=== PATIENT | female | born 1940 | race Caucasian/White ===

== ENCOUNTER 2017-01-12 08:04 | Inpatient (IN) | payer MEDICARE ==
[~2017-01-12] VITALS: Ht 160 cm; Wt 76.7 kg
--- NOTE | ~2017-01-12 | OP ---
Record Of Operation [facility] [address] [place]. [address] NAME: SHE BAPTISTE : 42 STATUS : ADM IN PAT#: [id number] AGE: 76 ADM/REG DATE : 01/12/17 MR#: [id number] REPORT SERV DATE: 02/13/17 DICTATED BY: TERRIE FUNES DATE: 02/13/17 REPORT STATUS : Draft TRANSCRIBED BY: RICHARD DATE: 02/13/17 DATE OF PROCEDURE: 02/13/2017 PREPROCEDURE DIAGNOSIS: Left knee effusion. POSTPROCEDURE DIAGNOSIS: Left knee effusion. PROCEDURE: Aspiration under sterile conditions of her left knee. COMPLICATIONS: None. SPECIMENS: Approximately 50 mL of yellow fluid, clear, sent to lab for Gram stain, aerobic, anaerobic, cell counts, AFB, and fungal. CONDITION UPON FINISHING PROCEDURE: Stable, feeling better. Dressed with Band-Aid. INDICATION FOR PROCEDURE: Briefly, this is a pleasant 76-year-old female with effusion concern for infection versus gout/pseudogout and inability to ambulate with rehab. We therefore gave her the risks and benefits of aspiration including, but not limited to, further pain, further infection, possible return of effusion, and hemarthrosis. She verbalized understanding of these risks and wished to proceed to procedure. A verbal time-out was made in the room air and everybody conferred on side and site. I then prepped her knee with ChloraPrep utilizing sterile technique with sterile gloves and sterile instruments. I utilized an 18-gauge spinal needle and a 60 mL syringe to aspirate 50 mL of clear yellow fluid from an anterior lateral portal. With this accomplished, I extracted the needle and dressed it with a Band-Aid, and the fluid was sent to micro as above. She tolerated the procedure well. We will continue to follow her labs again. Thank you for allowing me to share in this pleasant lady's care. POOJA/RICHARD Terrie Funes M.D. / [id number] CC: Pollo Roman M.D.
--- NOTE | ~2017-01-12 | CN ---
Consultation Report [facility] [address] [place]. [address] NAME: SHE BAPTISTE : 42 STATUS : ADM IN PAT#: [id number] AGE: 76 ADM/REG DATE : 01/12/17 MR#: [id number] REPORT SERV DATE: 02/13/17 DICTATED BY: TERRIE FUNES DATE: 02/13/17 REPORT STATUS : Draft TRANSCRIBED BY: MODL DATE: 02/13/17 CONSULTATION DATE OF CONSULTATION: 02/13/2017 CHIEF COMPLAINT: Left knee pain. HISTORY OF PRESENT ILLNESS: This pleasant 76-year-old female who is noted to have AML and has been on chemotherapy, has noted to have exquisite left knee pain. Radiographs confirmed chondrocalcinosis of the menisci suggestive of gout. She had responded slightly to colchicine, however, she is unable to bear weight with a large effusion about her left knee that is preventing rehab at this point. I have spoken with her oncologist, Dr. Cobian, whom we have conferred on evaluation and treatment plan. PAST MEDICAL HISTORY: Significant for melanoma, which was removed in 2014. PAST SURGICAL HISTORY: Includes arthroscopic surgery on her contralateral right knee. FAMILY HISTORY: Heart disease on one side and longevity on the other. SOCIAL HISTORY: She is , has a supportive spouse in the room. No alcohol, tobacco, or other illicits. CURRENT MEDICATIONS: See chart. Chart has been reviewed. REVIEW OF SYSTEMS: No headache, chest pain, nausea, vomiting, or shortness of breath concurrently, however, these symptoms have been present off and on with her chemotherapy. PHYSICAL EXAMINATION: GENERAL: On physical exam, I see a lady who looks stated age. A and O x3. Pleasant, cooperative with exam, supine in her bed at 467 approximately at 11 a.m. on 02/13/2017. HEENT: Pupils equally round and reactive to light and accommodation. Extraocular muscles intact. CHEST: Clear to auscultation bilaterally. HEART: Regular rate and rhythm. ABDOMEN: Soft, nontender, nondistended. Bowel sounds are present. EXTREMITIES: Bilateral upper extremities and right lower extremity showed good active and passive range of motion. Good distal pulses. No peripheral edema. Good sensation about the left lower extremity. Motion is limited about her knee. Her knee is fixed in approximately 45 degrees lying over to the lateral side in her bed. She has difficulty moving this knee and is exquisitely tender to palpation and has a very large effusion with a ballotable patella. There is no overall erythema. There is no drainage. I do not appreciate swelling and of the skin. All of her compartments are soft. Consultation Report [facility] [address] [address] NAME: SHE BAPTISTE : 42 STATUS : ADM IN PAT#: [id number] AGE: 76 ADM/REG DATE : 01/12/17 MR#: [id number] REPORT SERV DATE: 02/13/17 DICTATED BY: TERRIE FUNES DATE: 02/13/17 REPORT STATUS : Draft TRANSCRIBED BY: RICHARD DATE: 02/13/17 IMAGING: Radiographs reveal chondrocalcinosis of the menisci as well as tricompartmental osteoarthritis with bone spurs, osteophyte formation in all three compartments, as well as joint space loss overall. They do appear to be nonweightbearing films, but still significant osteoarthritis. ASSESSMENT: A 76-year-old with a large knee effusion, gout/pseudogout versus infection. I agree with Dr. Cobian that risks do not outweigh the benefits of an aspiration at this point, and we should rule out infection, and at the very least provide some relief with aspiration effusion. I have discussed this at length with the patient. She verbalized understanding and wishes to proceed. POOJA/RICHARD Terrie Funes M.D. / [id number] CC: Pollo Roman M.D.
--- NOTE | ~2017-01-12 | DS ---
Discharge Summary [place] [id number] [facility] [place] [place]. [address] NAME: SHE ECHEVERRIA : 42 STATUS : ADM IN PAT#: [id number] AGE: 76 ADM/REG DATE : 01/12/17 MR#: [id number] REPORT SERV DATE: 02/17/17 DICTATED BY: GILMA CATES III DATE: 02/17/17 REPORT STATUS : Draft TRANSCRIBED BY: MODL DATE: 02/17/17 ADMISSION DATE: 01/12/2017 DISCHARGE DATE: 02/17/2017 DISCHARGE DIGNOSES: 1. 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 2. Febrile neutropenia. 3. Left knee pseudogout flare. DISPOSITION: To rehab. DIET: Regular. ACTIVITY: As tolerated and per physical therapy. FOLLOWUP APPOINTMENT: She will need to follow up on 02/20/[address] Prado. DISCHARGE MEDICATIONS: 1. Acyclovir 400 mg twice a day. 2. Zofran 4 mg p.o. q.8 hours p.r.n. 3. Aspirin 81 mg p.o. daily. 4. Prednisone taper from 40 mg to 5 mg over five days. 5. Oxycodone 5 mg p.o. q.4 hours p.r.n. HOSPITAL COURSE: Ms. 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 She decided to undergo induction therapy and was admitted on 01/12/2017 to start treatment. She received idarubicin with cytarabine, which she tolerated very well, with the exception of the expected pancytopenia. She did develop neutropenic fever, which was culture negative and responded promptly to cefepime. Her blood counts remained low. She was treated with midostaurin 50 mg p.o. b.i.d. on days 8 through 21 secondary to her having an FLT3-positive mutational status. Her blood counts did recover on around day #30. Her discharge was delayed secondary to a left knee effusion, thought secondary to pseudogout flare, but did respond to prednisone and was improving by the day of discharge. She will be discharged to rehab and will follow up with Dr. Prado later this week. BMA/YUSUFL Gilma Cates III, M.D. / [id number] CC: Discharge Summary [address] [address] NAME: SHE ECHEVERRIA : 42 STATUS : ADM IN PAT#: [id number] AGE: 76 ADM/REG DATE : 01/12/17 MR#: [id number] REPORT SERV DATE: 02/17/17 DICTATED BY: GILMA CATES III DATE: 02/17/17 REPORT STATUS : Draft TRANSCRIBED BY: MODL DATE: 02/17/17 Pollo Roman M.D.
[~2017-01-12 08:04] MED LIST: ASAB PO; DACOGEN50 MG IV; HYDREA PO; MULTIVIT/MIN PO; VITAMIN D OTC PO; Z300 PO
[2017-01-12 09:17] LABS: HEMOGLOBIN 7.1 g/dL (12.0-16.0); INTERNATIONAL NORMAL RATI 1.4 UNITS (-); MEAN CORPUS HGB CONC 31.6 g/dL (32.0-36.0); MEAN CORPUSCULAR HEMOGLOB 28.6 pg (26.0-34.0); MEAN CORPUSCULAR VOLUME 90.7 fL (80-100); MEAN PLATELET VOLUME 10.7 fL (9.2-13.0); NUCLEATED RED BLOOD CELLS 0.6 /100WBC (0-0); PROTIME (NOT ORD) 17.1 SEC (12.0-14.5); RBC DISTRIBUTION WIDTH 17.8 % (12.0-16.0); RED CELL COUNT 2.48 10/6/uL (4.0-5.6)
[2017-01-12 09:18] LABS: PARTIAL THROMBO TIME 36.3 SEC (22.5-37.2)
[2017-01-12 09:24] LABS: A/G RATIO 0.8 (0.7-1.9); ALBUMIN 3.3 G/DL (3.5-5.0); ALKALINE PHOSPHATASE 86 U/L (45-117); BUN (BLOOD UREA NITROGEN) 15 MG/DL (6-23); CALCIUM, SERUM 9.1 MG/DL (8.5-10.4); CHLORIDE, SERUM 107 MMOL/L (96-112); CREATININE 1.09 MG/DL (0.55-1.02); GFR AFRICAN AMERICAN 58 ML/MIN (>=60); GFR NON AFRICAN AMERICAN 50 ML/MIN (>=60); GLUCOSE, SERUM 99 MG/DL (60-99); POTASSIUM, SERUM 4.3 MMOL/L (3.5-5.3); SGOT(AST) 23 U/L (5-40); SGPT(ALT) 19 U/L (5-65); SODIUM, SERUM 138 MMOL/L (135-148); TOTAL BILIRUBIN 0.2 MG/DL (0-1.2); TOTAL PROTEIN 7.3 G/DL (6.0-8.5)
[2017-01-12 09:25] LABS: CO2 (CARBON DIOXIDE) 22 MMOL/L (24-34)
[2017-01-12 09:36] LABS: HEMATOCRIT 22.5 % (36.0-48.0); PLATELET COUNT 746 10/3/uL (150-400); WHITE BLOOD CELLS 13.7 10/3/uL (4.5-10.5)
[2017-01-12 09:37] LABS: MANUAL DIFF YES %
[2017-01-12 09:44] LABS: ANISOCYTOSIS 1+ (5-10/OIF) (0-5/OIF); BAND NEUTROPHILS 4 %; BASOPHILS 2 %; BASOPHILS ABSOLUTE (CALC) 0.27 10/3/uL (0.0-0.16); EOSINOPHILS 4 %; EOSINOPHILS ABSOLUTE (CALC) 0.55 10/3/uL (0.0-0.53); LYMPHOCYTES 82 %; LYMPHOCYTES ABSOLUTE (CALC) 11.23 10/3/uL (0.67-4.30); MONOCYTES 2 %; MONOCYTES ABSOLUTE (CALC) 0.27 10/3/uL (0.21-1.20); NEUTROPHILS ABSOLUTE (CALC) 1.37 10/3/uL (2.02-8.40); SEGMENTED NEUTROPHIL (0) 6 %; TOTAL NUCLEATED CELLS 100
[2017-01-12] MEDS ORDERED: Z300 PO (11:45)
[2017-01-12] MEDS ORDERED: HYDREA PO (11:45)
[2017-01-12] MEDS ORDERED: TYLENOL OTC PO (11:46)
[2017-01-12] MEDS ORDERED: HALF81 PO (11:46)
[2017-01-13 05:21] LABS: BUN (BLOOD UREA NITROGEN) 14 MG/DL (6-23); CALCIUM, SERUM 8.5 MG/DL (8.5-10.4); CHLORIDE, SERUM 110 MMOL/L (96-112); CO2 (CARBON DIOXIDE) 22 MMOL/L (24-34); CREATININE 0.84 MG/DL (0.55-1.02); GFR AFRICAN AMERICAN 79 ML/MIN (>=60); GFR NON AFRICAN AMERICAN 68 ML/MIN (>=60); GLUCOSE, SERUM 118 MG/DL (60-99); POTASSIUM, SERUM 4.5 MMOL/L (3.5-5.3); SODIUM, SERUM 141 MMOL/L (135-148)
[2017-01-13 05:42] LABS: HEMOGLOBIN 7.5 g/dL (12.0-16.0); MANUAL DIFF YES %; MEAN CORPUS HGB CONC 31.3 g/dL (32.0-36.0); MEAN CORPUSCULAR HEMOGLOB 28.3 pg (26.0-34.0); MEAN CORPUSCULAR VOLUME 90.6 fL (80-100); NUCLEATED RED BLOOD CELLS 0.8 /100WBC (0-0); PLATELET COUNT 710 10/3/uL (150-400); RBC DISTRIBUTION WIDTH 17.2 % (12.0-16.0); RED CELL COUNT 2.65 10/6/uL (4.0-5.6); WHITE BLOOD CELLS 9.3 10/3/uL (4.5-10.5)
[2017-01-13 06:39] LABS: ATYPICAL LYMPH FEW (3-5%) (0-5%)
[2017-01-13 06:44] LABS: BAND NEUTROPHILS 3 %; BLASTS 27 % (0); EOSINOPHILS 1 %; EOSINOPHILS ABSOLUTE (CALC) 0.09 10/3/uL (0.0-0.53); IMMATURE GRANS ABSOLUTE (CALC) 0.09 10/3/uL (0.0-0.11); LYMPHOCYTES 39 %; LYMPHOCYTES ABSOLUTE (CALC) 3.81 10/3/uL (0.67-4.30); METAMYELOCYTES 1 %; MONOCYTES 4 %; MONOCYTES ABSOLUTE (CALC) 0.37 10/3/uL (0.21-1.20); SEGMENTED NEUTROPHIL (0) 25 %; TOTAL NUCLEATED CELLS 100
[2017-01-13 06:47] LABS: ANISOCYTOSIS 1+ (5-10/OIF) (0-5/OIF); GIANT PLATELET OCC
[2017-01-13 06:48] LABS: ATYPICAL LYMPH FEW (3-5%) (0-5%)
[2017-01-14 06:44] LABS: HEMATOCRIT 22.8 % (36.0-48.0); HEMOGLOBIN 7.3 g/dL (12.0-16.0); MEAN CORPUSCULAR HEMOGLOB 28.7 pg (26.0-34.0); MEAN CORPUSCULAR VOLUME 89.8 fL (80-100); MEAN PLATELET VOLUME 10.9 fL (9.2-13.0); RBC DISTRIBUTION WIDTH 17.6 % (12.0-16.0); RED CELL COUNT 2.54 10/6/uL (4.0-5.6)
[2017-01-14 06:45] LABS: MANUAL DIFF YES %; PLATELET COUNT 755 10/3/uL (150-400); WHITE BLOOD CELLS 4.4 10/3/uL (4.5-10.5)
[2017-01-14 06:50] LABS: CALCIUM, SERUM 8.5 MG/DL (8.5-10.4); CHLORIDE, SERUM 112 MMOL/L (96-112); CO2 (CARBON DIOXIDE) 23 MMOL/L (24-34); CREATININE 0.82 MG/DL (0.55-1.02); GFR AFRICAN AMERICAN 81 ML/MIN (>=60); GFR NON AFRICAN AMERICAN 70 ML/MIN (>=60); GLUCOSE, SERUM 119 MG/DL (60-99); POTASSIUM, SERUM 4.3 MMOL/L (3.5-5.3); SODIUM, SERUM 143 MMOL/L (135-148)
[2017-01-14 06:51] LABS: BUN (BLOOD UREA NITROGEN) 18 MG/DL (6-23)
[2017-01-14 07:33] LABS: BAND NEUTROPHILS 3 %; BASOPHILS 3 %; BASOPHILS ABSOLUTE (CALC) 0.13 10/3/uL (0.0-0.16); BLASTS 42 % (0); EOSINOPHILS 3 %; EOSINOPHILS ABSOLUTE (CALC) 0.13 10/3/uL (0.0-0.53); IMMATURE GRANS ABSOLUTE (CALC) 0.09 10/3/uL (0.0-0.11); LYMPHOCYTES 26 %; LYMPHOCYTES ABSOLUTE (CALC) 1.14 10/3/uL (0.67-4.30); MONOCYTES 5 %; MONOCYTES ABSOLUTE (CALC) 0.22 10/3/uL (0.21-1.20); NEUTROPHILS ABSOLUTE (CALC) 0.84 10/3/uL (2.02-8.40); PROMYELOCYTES 2 % (0); SEGMENTED NEUTROPHIL (0) 16 %; TOTAL NUCLEATED CELLS 100
[2017-01-14 07:37] LABS: ANISOCYTOSIS 1+ (5-10/OIF) (0-5/OIF); GIANT PLATELET FEW
[2017-01-15 04:30] LABS: BUN (BLOOD UREA NITROGEN) 19 MG/DL (6-23); CALCIUM, SERUM 8.1 MG/DL (8.5-10.4); CHLORIDE, SERUM 111 MMOL/L (96-112); CO2 (CARBON DIOXIDE) 23 MMOL/L (24-34); CREATININE 0.74 MG/DL (0.55-1.02); GFR AFRICAN AMERICAN 92 ML/MIN (>=60); GFR NON AFRICAN AMERICAN 79 ML/MIN (>=60); GLUCOSE, SERUM 118 MG/DL (60-99); POTASSIUM, SERUM 4.4 MMOL/L (3.5-5.3); SODIUM, SERUM 141 MMOL/L (135-148)
[2017-01-15 04:33] LABS: HEMOGLOBIN 8.1 g/dL (12.0-16.0); MEAN CORPUS HGB CONC 31.9 g/dL (32.0-36.0); MEAN CORPUSCULAR HEMOGLOB 27.6 pg (26.0-34.0); MEAN PLATELET VOLUME 10.1 fL (9.2-13.0); RBC DISTRIBUTION WIDTH 19.2 % (12.0-16.0); RED CELL COUNT 2.93 10/6/uL (4.0-5.6)
[2017-01-15 04:36] LABS: HEMATOCRIT 25.4 % (36.0-48.0); MEAN CORPUSCULAR VOLUME 86.7 fL (80-100); PLATELET COUNT 714 10/3/uL (150-400); WHITE BLOOD CELLS 2.2 10/3/uL (4.5-10.5)
[2017-01-15 04:37] LABS: MANUAL DIFF YES %
[2017-01-15 07:11] LABS: ANISOCYTOSIS 1+ (5-10/OIF) (0-5/OIF); BAND NEUTROPHILS 4 %; BASOPHILS 2 %; BASOPHILS ABSOLUTE (CALC) 0.04 10/3/uL (0.0-0.16); BLASTS 29 % (0); EOSINOPHILS 2 %; EOSINOPHILS ABSOLUTE (CALC) 0.04 10/3/uL (0.0-0.53); LYMPHOCYTES 31 %; LYMPHOCYTES ABSOLUTE (CALC) 0.68 10/3/uL (0.67-4.30); MONOCYTES 1 %; MONOCYTES ABSOLUTE (CALC) 0.02 10/3/uL (0.21-1.20); NEUTROPHILS ABSOLUTE (CALC) 0.77 10/3/uL (2.02-8.40); SEGMENTED NEUTROPHIL (0) 31 %; TOTAL NUCLEATED CELLS 100
[2017-01-15 07:12] LABS: POLYCHROMASIA 1+ (2-5/OIF) (0-1/OIF)
[2017-01-16 04:46] LABS: HEMATOCRIT 26.6 % (36.0-48.0); HEMOGLOBIN 8.5 g/dL (12.0-16.0); MEAN CORPUSCULAR HEMOGLOB 28.3 pg (26.0-34.0); MEAN CORPUSCULAR VOLUME 88.7 fL (80-100); MEAN PLATELET VOLUME 10.1 fL (9.2-13.0)
[2017-01-16 04:49] LABS: BUN (BLOOD UREA NITROGEN) 21 MG/DL (6-23); CALCIUM, SERUM 8.3 MG/DL (8.5-10.4); CHLORIDE, SERUM 109 MMOL/L (96-112); CO2 (CARBON DIOXIDE) 24 MMOL/L (24-34); CREATININE 0.79 MG/DL (0.55-1.02); GFR AFRICAN AMERICAN 85 ML/MIN (>=60); GFR NON AFRICAN AMERICAN 73 ML/MIN (>=60); POTASSIUM, SERUM 4.1 MMOL/L (3.5-5.3); SODIUM, SERUM 141 MMOL/L (135-148)
[2017-01-16 04:50] LABS: MANUAL DIFF YES %; PLATELET COUNT 906 10/3/uL (150-400)
[2017-01-16 04:51] LABS: GLUCOSE, SERUM 87 MG/DL (60-99)
[2017-01-16 05:39] LABS: BAND NEUTROPHILS 1 %; BASOPHILS 3 %; BASOPHILS ABSOLUTE (CALC) 0.06 10/3/uL (0.0-0.16); BLASTS 23 % (0); LYMPHOCYTES 55 %; NEUTROPHILS ABSOLUTE (CALC) 0.38 10/3/uL (2.02-8.40); SEGMENTED NEUTROPHIL (0) 18 %; TOTAL NUCLEATED CELLS 100
[2017-01-16 05:40] LABS: ANISOCYTOSIS 1+ (5-10/OIF) (0-5/OIF)
[2017-01-16 05:41] LABS: TOXIC GRANULATION SLT
[2017-01-16 05:42] LABS: POLYCHROMASIA 1+ (2-5/OIF) (0-1/OIF)
[2017-01-17 05:40] LABS: HEMATOCRIT 26.3 % (36.0-48.0); HEMOGLOBIN 8.6 g/dL (12.0-16.0); MEAN CORPUS HGB CONC 32.7 g/dL (32.0-36.0); MEAN CORPUSCULAR HEMOGLOB 28.7 pg (26.0-34.0); MEAN CORPUSCULAR VOLUME 87.7 fL (80-100); MEAN PLATELET VOLUME 9.7 fL (9.2-13.0); PLATELET COUNT 691 10/3/uL (150-400); RBC DISTRIBUTION WIDTH 18.1 % (12.0-16.0)
[2017-01-17 05:45] LABS: WHITE BLOOD CELLS 0.8 10/3/uL (4.5-10.5)
[2017-01-17 05:46] LABS: MANUAL DIFF YES %
[2017-01-17 05:53] LABS: BUN (BLOOD UREA NITROGEN) 14 MG/DL (6-23); CALCIUM, SERUM 8.6 MG/DL (8.5-10.4); CHLORIDE, SERUM 106 MMOL/L (96-112); CO2 (CARBON DIOXIDE) 26 MMOL/L (24-34); CREATININE 0.59 MG/DL (0.55-1.02); GFR AFRICAN AMERICAN 104 ML/MIN (>=60); GFR NON AFRICAN AMERICAN 90 ML/MIN (>=60); GLUCOSE, SERUM 94 MG/DL (60-99); POTASSIUM, SERUM 3.8 MMOL/L (3.5-5.3); SODIUM, SERUM 138 MMOL/L (135-148)
[2017-01-17 06:51] LABS: BLASTS 25 % (0); EOSINOPHILS 6 %; EOSINOPHILS ABSOLUTE (CALC) 0.05 10/3/uL (0.0-0.53); LYMPHOCYTES 60 %; LYMPHOCYTES ABSOLUTE (CALC) 0.48 10/3/uL (0.67-4.30); MONOCYTES 2 %; MONOCYTES ABSOLUTE (CALC) 0.02 10/3/uL (0.21-1.20); NEUTROPHILS ABSOLUTE (CALC) 0.06 10/3/uL (2.02-8.40); SEGMENTED NEUTROPHIL (0) 8 %; TOTAL NUCLEATED CELLS 53
[2017-01-17 06:52] LABS: ANISOCYTOSIS 1+ (5-10/OIF) (0-5/OIF); PLATELET ESTIMATE INC (ADEQUATE)
[2017-01-17 06:53] LABS: GIANT PLATELET OCC
[2017-01-17 19:53] LABS: ASCORBIC ACID (UR NOT ORDER) NEG (NEG); BILIRUBIN, URINE NEGATIVE (NEG); KETONE, URINE NEGATIVE (NEG); LEUKOCYTE ESTERASE(NOT OR TRACE (NEG); WBC (NOT ORDERED) (RFLEX) 12 (0-5)
[2017-01-18 04:40] LABS: HEMATOCRIT 24.7 % (36.0-48.0); MEAN CORPUS HGB CONC 32.4 g/dL (32.0-36.0); MEAN CORPUSCULAR HEMOGLOB 28.2 pg (26.0-34.0); MEAN PLATELET VOLUME 9.3 fL (9.2-13.0); RED CELL COUNT 2.84 10/6/uL (4.0-5.6)
[2017-01-18 04:43] LABS: MANUAL DIFF YES %; PLATELET COUNT 474 10/3/uL (150-400); WHITE BLOOD CELLS 0.5 10/3/uL (4.5-10.5)
[2017-01-18 04:56] LABS: BUN (BLOOD UREA NITROGEN) 12 MG/DL (6-23); CALCIUM, SERUM 8.7 MG/DL (8.5-10.4); CHLORIDE, SERUM 105 MMOL/L (96-112); CO2 (CARBON DIOXIDE) 26 MMOL/L (24-34); CREATININE 0.66 MG/DL (0.55-1.02); GFR AFRICAN AMERICAN 100 ML/MIN (>=60); GFR NON AFRICAN AMERICAN 86 ML/MIN (>=60); GLUCOSE, SERUM 100 MG/DL (60-99); POTASSIUM, SERUM 4.2 MMOL/L (3.5-5.3); SGOT(AST) 13 U/L (5-40); SGPT(ALT) 25 U/L (5-65); SODIUM, SERUM 137 MMOL/L (135-148); TOTAL BILIRUBIN 0.4 MG/DL (0-1.2)
[2017-01-18 04:58] LABS: A/G RATIO 0.8 (0.7-1.9); ALBUMIN 2.5 G/DL (3.5-5.0); ALKALINE PHOSPHATASE 58 U/L (45-117); GLOBULIN 3.3 G/DL (2.5-4.1); TOTAL PROTEIN 5.8 G/DL (6.0-8.5)
[2017-01-18 05:08] LABS: ANISOCYTOSIS 1+ (5-10/OIF) (0-5/OIF); BASOPHILS 4 %; BASOPHILS ABSOLUTE (CALC) 0.02 10/3/uL (0.0-0.16); BLASTS 16 % (0); GIANT PLATELET OCC; LYMPHOCYTES 64 %; LYMPHOCYTES ABSOLUTE (CALC) 0.32 10/3/uL (0.67-4.30); MONOCYTES 4 %; MONOCYTES ABSOLUTE (CALC) 0.02 10/3/uL (0.21-1.20); NEUTROPHILS ABSOLUTE (CALC) 0.06 10/3/uL (2.02-8.40); PLATELET ESTIMATE SLT INC (ADEQUATE); POLYCHROMASIA 1+ (2-5/OIF) (0-1/OIF); SEGMENTED NEUTROPHIL (0) 12 %; TOTAL NUCLEATED CELLS 25
[2017-01-19 05:06] LABS: HEMATOCRIT 22.8 % (36.0-48.0); HEMOGLOBIN 7.4 g/dL (12.0-16.0); MEAN CORPUS HGB CONC 32.5 g/dL (32.0-36.0); MEAN CORPUSCULAR HEMOGLOB 28.6 pg (26.0-34.0); MEAN PLATELET VOLUME 9.4 fL (9.2-13.0); RBC DISTRIBUTION WIDTH 17.7 % (12.0-16.0); RED CELL COUNT 2.59 10/6/uL (4.0-5.6)
[2017-01-19 05:07] LABS: MANUAL DIFF YES %; PLATELET COUNT 316 10/3/uL (150-400); WHITE BLOOD CELLS 0.4 10/3/uL (4.5-10.5)
[2017-01-19 05:15] LABS: BUN (BLOOD UREA NITROGEN) 15 MG/DL (6-23); CALCIUM, SERUM 8.6 MG/DL (8.5-10.4); CHLORIDE, SERUM 108 MMOL/L (96-112); CO2 (CARBON DIOXIDE) 27 MMOL/L (24-34); CREATININE 0.63 MG/DL (0.55-1.02); GFR AFRICAN AMERICAN 102 ML/MIN (>=60); GFR NON AFRICAN AMERICAN 88 ML/MIN (>=60); GLUCOSE, SERUM 98 MG/DL (60-99); POTASSIUM, SERUM 4.4 MMOL/L (3.5-5.3); SODIUM, SERUM 142 MMOL/L (135-148)
[2017-01-19 06:18] LABS: BLASTS 12 % (0); EOSINOPHILS 4 %; EOSINOPHILS ABSOLUTE (CALC) 0.02 10/3/uL (0.0-0.53); LYMPHOCYTES 72 %; LYMPHOCYTES ABSOLUTE (CALC) 0.29 10/3/uL (0.67-4.30); MONOCYTES 4 %; MONOCYTES ABSOLUTE (CALC) 0.02 10/3/uL (0.21-1.20); NEUTROPHILS ABSOLUTE (CALC) 0.03 10/3/uL (2.02-8.40); NUCLEATED RED BLOOD CELLS 0 /100WBC (0); SEGMENTED NEUTROPHIL (0) 8 %; TOTAL NUCLEATED CELLS 25
[2017-01-19 06:19] LABS: ANISOCYTOSIS 1+ (5-10/OIF) (0-5/OIF); MICROCYTES 1+ (5-10/OIF) (0-5/OIF); PLATELET ESTIMATE ADQ (ADEQUATE)
[2017-01-20 04:17] LABS: HEMOGLOBIN 8.5 g/dL (12.0-16.0); MEAN CORPUS HGB CONC 33.3 g/dL (32.0-36.0); MEAN CORPUSCULAR HEMOGLOB 29.3 pg (26.0-34.0); MEAN CORPUSCULAR VOLUME 87.9 fL (80-100); MEAN PLATELET VOLUME 9.5 fL (9.2-13.0); RBC DISTRIBUTION WIDTH 17.2 % (12.0-16.0)
[2017-01-20 04:20] LABS: HEMATOCRIT 25.5 % (36.0-48.0); MANUAL DIFF YES %; PLATELET COUNT 181 10/3/uL (150-400); WHITE BLOOD CELLS 0.3 10/3/uL (4.5-10.5)
[2017-01-20 04:30] LABS: BUN (BLOOD UREA NITROGEN) 15 MG/DL (6-23); CALCIUM, SERUM 8.4 MG/DL (8.5-10.4); CHLORIDE, SERUM 107 MMOL/L (96-112); CO2 (CARBON DIOXIDE) 26 MMOL/L (24-34); CREATININE 0.69 MG/DL (0.55-1.02); GFR AFRICAN AMERICAN 99 ML/MIN (>=60); GFR NON AFRICAN AMERICAN 85 ML/MIN (>=60); GLUCOSE, SERUM 99 MG/DL (60-99); POTASSIUM, SERUM 4.1 MMOL/L (3.5-5.3); SODIUM, SERUM 141 MMOL/L (135-148)
[2017-01-20 05:34] LABS: BASOPHILS 9 %; BASOPHILS ABSOLUTE (CALC) 0.03 10/3/uL (0.0-0.16); EOSINOPHILS 4 %; EOSINOPHILS ABSOLUTE (CALC) 0.01 10/3/uL (0.0-0.53); LYMPHOCYTES 83 %; LYMPHOCYTES ABSOLUTE (CALC) 0.25 10/3/uL (0.67-4.30); NEUTROPHILS ABSOLUTE (CALC) 0.01 10/3/uL (2.02-8.40); SEGMENTED NEUTROPHIL (0) 4 %; TOTAL NUCLEATED CELLS 23
[2017-01-20 05:35] LABS: ANISOCYTOSIS 1+ (5-10/OIF) (0-5/OIF); GIANT PLATELET RARE; OVALOCYTES 1+ (3-10/OIF) (0-2/OIF); PLATELET ESTIMATE ADQ (ADEQUATE)
[2017-01-21 04:38] LABS: HEMATOCRIT 24.8 % (36.0-48.0); MEAN CORPUS HGB CONC 32.3 g/dL (32.0-36.0); MEAN CORPUSCULAR HEMOGLOB 28.4 pg (26.0-34.0); MEAN CORPUSCULAR VOLUME 87.9 fL (80-100); MEAN PLATELET VOLUME 10.1 fL (9.2-13.0); RBC DISTRIBUTION WIDTH 17.1 % (12.0-16.0); RED CELL COUNT 2.82 10/6/uL (4.0-5.6)
[2017-01-21 04:39] LABS: MANUAL DIFF YES %; PLATELET COUNT 103 10/3/uL (150-400); WHITE BLOOD CELLS 0.3 10/3/uL (4.5-10.5)
[2017-01-21 04:57] LABS: BUN (BLOOD UREA NITROGEN) 16 MG/DL (6-23); CALCIUM, SERUM 8.4 MG/DL (8.5-10.4); CHLORIDE, SERUM 107 MMOL/L (96-112); CO2 (CARBON DIOXIDE) 26 MMOL/L (24-34); CREATININE 0.62 MG/DL (0.55-1.02); GFR AFRICAN AMERICAN 102 ML/MIN (>=60); GFR NON AFRICAN AMERICAN 88 ML/MIN (>=60); GLUCOSE, SERUM 117 MG/DL (60-99); POTASSIUM, SERUM 3.6 MMOL/L (3.5-5.3); SODIUM, SERUM 139 MMOL/L (135-148)
[2017-01-21 05:25] LABS: BASOPHILS 5 %; BASOPHILS ABSOLUTE (CALC) 0.02 10/3/uL (0.0-0.16); LYMPHOCYTES 95 %; LYMPHOCYTES ABSOLUTE (CALC) 0.29 10/3/uL (0.67-4.30); TOTAL NUCLEATED CELLS 100
[2017-01-21 05:26] LABS: ANISOCYTOSIS 1+ (5-10/OIF) (0-5/OIF); GIANT PLATELET OCC; PLATELET ESTIMATE DEC (ADEQUATE); SPHEROCYTES FEW (3-10/OIF)
[2017-01-22 05:45] LABS: HEMATOCRIT 23.9 % (36.0-48.0); MEAN CORPUS HGB CONC 33.5 g/dL (32.0-36.0); MEAN CORPUSCULAR VOLUME 86.6 fL (80-100); MEAN PLATELET VOLUME 8.9 fL (9.2-13.0); RBC DISTRIBUTION WIDTH 17.4 % (12.0-16.0); RED CELL COUNT 2.76 10/6/uL (4.0-5.6)
[2017-01-22 05:47] LABS: BUN (BLOOD UREA NITROGEN) 16 MG/DL (6-23); CALCIUM, SERUM 8.5 MG/DL (8.5-10.4); CHLORIDE, SERUM 107 MMOL/L (96-112); CO2 (CARBON DIOXIDE) 28 MMOL/L (24-34); CREATININE 0.59 MG/DL (0.55-1.02); GFR AFRICAN AMERICAN 104 ML/MIN (>=60); GFR NON AFRICAN AMERICAN 90 ML/MIN (>=60); GLUCOSE, SERUM 100 MG/DL (60-99); SODIUM, SERUM 139 MMOL/L (135-148); WHITE BLOOD CELLS 0.3 10/3/uL (4.5-10.5)
[2017-01-22 05:48] LABS: PLATELET COUNT 35 10/3/uL (150-400)
[2017-01-22 05:49] LABS: MANUAL DIFF YES %
[2017-01-22 07:16] LABS: BASOPHILS 10 %; BASOPHILS ABSOLUTE (CALC) 0.03 10/3/uL (0.0-0.16); LYMPHOCYTES 90 %; LYMPHOCYTES ABSOLUTE (CALC) 0.27 10/3/uL (0.67-4.30); TOTAL NUCLEATED CELLS 10
[2017-01-22 07:17] LABS: ANISOCYTOSIS 1+ (5-10/OIF) (0-5/OIF); HYPOCHROMIA 1+ (3-10/OIF) (0-2/OIF); MICROCYTES 1+ (5-10/OIF) (0-5/OIF)
[2017-01-23 06:20] LABS: HEMATOCRIT 23.1 % (36.0-48.0); HEMOGLOBIN 7.8 g/dL (12.0-16.0); MEAN CORPUS HGB CONC 33.8 g/dL (32.0-36.0); MEAN CORPUSCULAR HEMOGLOB 28.9 pg (26.0-34.0); MEAN CORPUSCULAR VOLUME 85.6 fL (80-100); RBC DISTRIBUTION WIDTH 17.2 % (12.0-16.0)
[2017-01-23 06:22] LABS: MANUAL DIFF YES %; PLATELET COUNT 15 10/3/uL (150-400); WHITE BLOOD CELLS 0.3 10/3/uL (4.5-10.5)
[2017-01-23 06:31] LABS: BUN (BLOOD UREA NITROGEN) 15 MG/DL (6-23); CALCIUM, SERUM 8.5 MG/DL (8.5-10.4); CHLORIDE, SERUM 106 MMOL/L (96-112); CO2 (CARBON DIOXIDE) 28 MMOL/L (24-34); CREATININE 0.68 MG/DL (0.55-1.02); GFR AFRICAN AMERICAN 99 ML/MIN (>=60); GFR NON AFRICAN AMERICAN 86 ML/MIN (>=60); GLUCOSE, SERUM 100 MG/DL (60-99); POTASSIUM, SERUM 4.1 MMOL/L (3.5-5.3); SODIUM, SERUM 138 MMOL/L (135-148)
[2017-01-23 07:33] LABS: BAND NEUTROPHILS 1 %; BLASTS 2 % (0); LYMPHOCYTES 66 %; MONOCYTES 4 %; MONOCYTES ABSOLUTE (CALC) 0.01 10/3/uL (0.21-1.20); NEUTROPHILS ABSOLUTE (CALC) 0.08 10/3/uL (2.02-8.40); SEGMENTED NEUTROPHIL (0) 27 %; TOTAL NUCLEATED CELLS 100
[2017-01-23 07:34] LABS: RBC MORPHOLOGY NORM (NORMAL)
[2017-01-24 05:11] LABS: BASOPHILS 6.1 %; BASOPHILS ABSOLUTE 0.02 10/3/uL (0.0-0.16); EOSINOPHILS 0 %; LYMPHOCYTES 87.9 %; LYMPHOCYTES ABSOLUTE 0.29 10/3/uL (0.67-4.30); MEAN CORPUSCULAR HEMOGLOB 28.2 pg (26.0-34.0); MEAN CORPUSCULAR VOLUME 85.5 fL (80-100); MONOCYTES ABSOLUTE 0.01 10/3/uL (0.21-1.20); NEUTROPHILS ABSOLUTE 0.01 10/3/uL (2.02-8.40); RBC DISTRIBUTION WIDTH 16.8 % (12.0-16.0); RED CELL COUNT 2.41 10/6/uL (4.0-5.6)
[2017-01-24 05:12] LABS: HEMATOCRIT 20.6 % (36.0-48.0); HEMOGLOBIN 6.8 g/dL (12.0-16.0); PLATELET COUNT 5 10/3/uL (150-400); WHITE BLOOD CELLS 0.3 10/3/uL (4.5-10.5)
[2017-01-24 05:22] LABS: CALCIUM, SERUM 8.5 MG/DL (8.5-10.4); CHLORIDE, SERUM 106 MMOL/L (96-112); CO2 (CARBON DIOXIDE) 26 MMOL/L (24-34); CREATININE 0.75 MG/DL (0.55-1.02); GFR AFRICAN AMERICAN 90 ML/MIN (>=60); GFR NON AFRICAN AMERICAN 78 ML/MIN (>=60); GLUCOSE, SERUM 108 MG/DL (60-99); POTASSIUM, SERUM 4.1 MMOL/L (3.5-5.3); SODIUM, SERUM 139 MMOL/L (135-148)
[2017-01-24 05:24] LABS: BUN (BLOOD UREA NITROGEN) 19 MG/DL (6-23)
[2017-01-24 05:55] LABS: BLASTS 4 % (0); LYMPHOCYTES 88 %; LYMPHOCYTES ABSOLUTE (CALC) 0.26 10/3/uL (0.67-4.30); MONOCYTES 4 %; MONOCYTES ABSOLUTE (CALC) 0.01 10/3/uL (0.21-1.20); NEUTROPHILS ABSOLUTE (CALC) 0.01 10/3/uL (2.02-8.40); RBC MORPHOLOGY NORM (NORMAL); SEGMENTED NEUTROPHIL (0) 4 %; TOTAL NUCLEATED CELLS 25
[2017-01-25 04:44] LABS: HEMOGLOBIN 8.1 g/dL (12.0-16.0); MEAN CORPUS HGB CONC 34.3 g/dL (32.0-36.0); MEAN CORPUSCULAR VOLUME 84.6 fL (80-100); MEAN PLATELET VOLUME 8.1 fL (9.2-13.0); RBC DISTRIBUTION WIDTH 15.6 % (12.0-16.0); RED CELL COUNT 2.79 10/6/uL (4.0-5.6)
[2017-01-25 04:46] LABS: HEMATOCRIT 23.6 % (36.0-48.0); MANUAL DIFF YES %; PLATELET COUNT 28 10/3/uL (150-400); WHITE BLOOD CELLS 0.2 10/3/uL (4.5-10.5)
[2017-01-25 04:56] LABS: BUN (BLOOD UREA NITROGEN) 17 MG/DL (6-23); CALCIUM, SERUM 8.7 MG/DL (8.5-10.4); CHLORIDE, SERUM 106 MMOL/L (96-112); CO2 (CARBON DIOXIDE) 27 MMOL/L (24-34); CREATININE 0.67 MG/DL (0.55-1.02); GFR AFRICAN AMERICAN 100 ML/MIN (>=60); GFR NON AFRICAN AMERICAN 86 ML/MIN (>=60); GLUCOSE, SERUM 109 MG/DL (60-99); POTASSIUM, SERUM 3.9 MMOL/L (3.5-5.3); SODIUM, SERUM 138 MMOL/L (135-148)
[2017-01-25 05:39] LABS: BLASTS 2 % (0); LYMPHOCYTES 88 %; LYMPHOCYTES ABSOLUTE (CALC) 0.18 10/3/uL (0.67-4.30); MONOCYTES 4 %; MONOCYTES ABSOLUTE (CALC) 0.01 10/3/uL (0.21-1.20); NEUTROPHILS ABSOLUTE (CALC) 0.01 10/3/uL (2.02-8.40); RBC MORPHOLOGY NORM (NORMAL); SEGMENTED NEUTROPHIL (0) 6 %; TOTAL NUCLEATED CELLS 100
[2017-01-26 04:28] LABS: HEMATOCRIT 22.3 % (36.0-48.0); HEMOGLOBIN 7.9 g/dL (12.0-16.0); MEAN CORPUS HGB CONC 35.4 g/dL (32.0-36.0); MEAN CORPUSCULAR HEMOGLOB 29.8 pg (26.0-34.0); MEAN CORPUSCULAR VOLUME 84.2 fL (80-100); MEAN PLATELET VOLUME 8.1 fL (9.2-13.0); RBC DISTRIBUTION WIDTH 15.6 % (12.0-16.0); RED CELL COUNT 2.65 10/6/uL (4.0-5.6)
[2017-01-26 04:30] LABS: PLATELET COUNT 20 10/3/uL (150-400); WHITE BLOOD CELLS 0.3 10/3/uL (4.5-10.5)
[2017-01-26 04:31] LABS: MANUAL DIFF YES %
[2017-01-26 04:40] LABS: BUN (BLOOD UREA NITROGEN) 15 MG/DL (6-23); CALCIUM, SERUM 8.7 MG/DL (8.5-10.4); CHLORIDE, SERUM 105 MMOL/L (96-112); CO2 (CARBON DIOXIDE) 27 MMOL/L (24-34); CREATININE 0.59 MG/DL (0.55-1.02); GFR AFRICAN AMERICAN 104 ML/MIN (>=60); GFR NON AFRICAN AMERICAN 90 ML/MIN (>=60); GLUCOSE, SERUM 108 MG/DL (60-99); POTASSIUM, SERUM 3.6 MMOL/L (3.5-5.3); SODIUM, SERUM 138 MMOL/L (135-148)
[2017-01-26 05:20] LABS: LYMPHOCYTES 92 %; LYMPHOCYTES ABSOLUTE (CALC) 0.28 10/3/uL (0.67-4.30); NEUTROPHILS ABSOLUTE (CALC) 0.02 10/3/uL (2.02-8.40); SEGMENTED NEUTROPHIL (0) 8 %; TOTAL NUCLEATED CELLS 100
[2017-01-26 05:21] LABS: RBC MORPHOLOGY NORM (NORMAL)
[2017-01-26 09:58] LABS: RETICULOCYTE COUNT 0.1 % (0.5-2.5); RETICULOCYTE COUNT ABSOLUTE 3.7 10/3/uL (20.2-119.8)
[2017-01-27 04:30] LABS: HEMATOCRIT 20.5 % (36.0-48.0); HEMOGLOBIN 7.2 g/dL (12.0-16.0); MANUAL DIFF YES %; MEAN CORPUS HGB CONC 35.1 g/dL (32.0-36.0); MEAN CORPUSCULAR HEMOGLOB 29.5 pg (26.0-34.0); PLATELET COUNT 14 10/3/uL (150-400); RBC DISTRIBUTION WIDTH 15.3 % (12.0-16.0); RED CELL COUNT 2.44 10/6/uL (4.0-5.6); WHITE BLOOD CELLS 0.3 10/3/uL (4.5-10.5)
[2017-01-27 04:43] LABS: BUN (BLOOD UREA NITROGEN) 16 MG/DL (6-23); CALCIUM, SERUM 8.7 MG/DL (8.5-10.4); CHLORIDE, SERUM 104 MMOL/L (96-112); CO2 (CARBON DIOXIDE) 27 MMOL/L (24-34); CREATININE 0.51 MG/DL (0.55-1.02); GFR AFRICAN AMERICAN 109 ML/MIN (>=60); GFR NON AFRICAN AMERICAN 94 ML/MIN (>=60); GLUCOSE, SERUM 108 MG/DL (60-99); POTASSIUM, SERUM 3.8 MMOL/L (3.5-5.3); SODIUM, SERUM 138 MMOL/L (135-148)
[2017-01-27 04:52] LABS: LYMPHOCYTES 92 %; LYMPHOCYTES ABSOLUTE (CALC) 0.28 10/3/uL (0.67-4.30); NEUTROPHILS ABSOLUTE (CALC) 0.03 10/3/uL (2.02-8.40); RBC MORPHOLOGY NORM (NORMAL); SEGMENTED NEUTROPHIL (0) 8 %; TOTAL NUCLEATED CELLS 12
[2017-01-28 04:00] LABS: MEAN CORPUS HGB CONC 34.6 g/dL (32.0-36.0); MEAN CORPUSCULAR HEMOGLOB 28.9 pg (26.0-34.0); MEAN CORPUSCULAR VOLUME 83.6 fL (80-100); MEAN PLATELET VOLUME 8.3 fL (9.2-13.0); RBC DISTRIBUTION WIDTH 15.1 % (12.0-16.0); RED CELL COUNT 2.25 10/6/uL (4.0-5.6)
[2017-01-28 04:03] LABS: HEMATOCRIT 18.8 % (36.0-48.0); HEMOGLOBIN 6.5 g/dL (12.0-16.0); PLATELET COUNT 8 10/3/uL (150-400); WHITE BLOOD CELLS 0.2 10/3/uL (4.5-10.5)
[2017-01-28 04:05] LABS: MANUAL DIFF YES %
[2017-01-28 04:13] LABS: BUN (BLOOD UREA NITROGEN) 16 MG/DL (6-23); CALCIUM, SERUM 8.7 MG/DL (8.5-10.4); CHLORIDE, SERUM 105 MMOL/L (96-112); CO2 (CARBON DIOXIDE) 26 MMOL/L (24-34); CREATININE 0.64 MG/DL (0.55-1.02); GFR AFRICAN AMERICAN 101 ML/MIN (>=60); GFR NON AFRICAN AMERICAN 87 ML/MIN (>=60); GLUCOSE, SERUM 107 MG/DL (60-99); POTASSIUM, SERUM 3.5 MMOL/L (3.5-5.3); SODIUM, SERUM 138 MMOL/L (135-148)
[2017-01-28 05:09] LABS: LYMPHOCYTES 100 %; TOTAL NUCLEATED CELLS 10
[2017-01-28 05:10] LABS: RBC MORPHOLOGY NORM (NORMAL)
[2017-01-29 04:43] LABS: MEAN CORPUS HGB CONC 34.8 g/dL (32.0-36.0); MEAN CORPUSCULAR HEMOGLOB 28.8 pg (26.0-34.0); MEAN CORPUSCULAR VOLUME 82.7 fL (80-100); MEAN PLATELET VOLUME 8.9 fL (9.2-13.0); RBC DISTRIBUTION WIDTH 14.6 % (12.0-16.0); RED CELL COUNT 2.26 10/6/uL (4.0-5.6)
[2017-01-29 04:44] LABS: HEMATOCRIT 18.7 % (36.0-48.0); HEMOGLOBIN 6.5 g/dL (12.0-16.0); PLATELET COUNT 29 10/3/uL (150-400); WHITE BLOOD CELLS 0.2 10/3/uL (4.5-10.5)
[2017-01-29 04:47] LABS: MANUAL DIFF YES %
[2017-01-29 05:01] LABS: BUN (BLOOD UREA NITROGEN) 13 MG/DL (6-23); CALCIUM, SERUM 8.2 MG/DL (8.5-10.4); CHLORIDE, SERUM 108 MMOL/L (96-112); CO2 (CARBON DIOXIDE) 25 MMOL/L (24-34); CREATININE 0.53 MG/DL (0.55-1.02); GFR AFRICAN AMERICAN 108 ML/MIN (>=60); GFR NON AFRICAN AMERICAN 93 ML/MIN (>=60); GLUCOSE, SERUM 107 MG/DL (60-99); POTASSIUM, SERUM 3.6 MMOL/L (3.5-5.3); SODIUM, SERUM 143 MMOL/L (135-148)
[2017-01-29 05:29] LABS: LYMPHOCYTES 100 %; TOTAL NUCLEATED CELLS 100
[2017-01-29 05:30] LABS: SPHEROCYTES FEW (3-10/OIF); TEARDROP SHAPED RBCS OCC (0-2/OIF)
[2017-01-30 04:44] LABS: MEAN CORPUS HGB CONC 35.3 g/dL (32.0-36.0); MEAN CORPUSCULAR HEMOGLOB 28.6 pg (26.0-34.0); MEAN CORPUSCULAR VOLUME 81.2 fL (80-100); RBC DISTRIBUTION WIDTH 14.9 % (12.0-16.0)
[2017-01-30 04:47] LABS: HEMATOCRIT 22.4 % (36.0-48.0); HEMOGLOBIN 7.9 g/dL (12.0-16.0); PLATELET COUNT 17 10/3/uL (150-400); RED CELL COUNT 2.76 10/6/uL (4.0-5.6); WHITE BLOOD CELLS 0.2 10/3/uL (4.5-10.5)
[2017-01-30 04:49] LABS: MANUAL DIFF YES %
[2017-01-30 04:54] LABS: BUN (BLOOD UREA NITROGEN) 11 MG/DL (6-23); CALCIUM, SERUM 8.3 MG/DL (8.5-10.4); CHLORIDE, SERUM 105 MMOL/L (96-112); CO2 (CARBON DIOXIDE) 25 MMOL/L (24-34); CREATININE 0.55 MG/DL (0.55-1.02); GFR AFRICAN AMERICAN 106 ML/MIN (>=60); GFR NON AFRICAN AMERICAN 92 ML/MIN (>=60); GLUCOSE, SERUM 109 MG/DL (60-99); POTASSIUM, SERUM 3.4 MMOL/L (3.5-5.3); SODIUM, SERUM 138 MMOL/L (135-148)
[2017-01-30 05:13] LABS: LYMPHOCYTES 100 %; TOTAL NUCLEATED CELLS 20
[2017-01-30 05:14] LABS: RBC MORPHOLOGY NORM (NORMAL)
[2017-01-31 05:35] LABS: BUN (BLOOD UREA NITROGEN) 9 MG/DL (6-23); CHLORIDE, SERUM 104 MMOL/L (96-112); CO2 (CARBON DIOXIDE) 25 MMOL/L (24-34); CREATININE 0.52 MG/DL (0.55-1.02); GFR AFRICAN AMERICAN 108 ML/MIN (>=60); GFR NON AFRICAN AMERICAN 93 ML/MIN (>=60); GLUCOSE, SERUM 104 MG/DL (60-99); POTASSIUM, SERUM 3.4 MMOL/L (3.5-5.3); SODIUM, SERUM 138 MMOL/L (135-148)
[2017-01-31 05:54] LABS: HEMATOCRIT 22.4 % (36.0-48.0); HEMOGLOBIN 7.7 g/dL (12.0-16.0); MEAN CORPUS HGB CONC 34.4 g/dL (32.0-36.0); MEAN CORPUSCULAR HEMOGLOB 27.7 pg (26.0-34.0); MEAN CORPUSCULAR VOLUME 80.6 fL (80-100); RBC DISTRIBUTION WIDTH 14.7 % (12.0-16.0); RED CELL COUNT 2.78 10/6/uL (4.0-5.6)
[2017-01-31 05:56] LABS: MANUAL DIFF YES %; PLATELET COUNT 11 10/3/uL (150-400); WHITE BLOOD CELLS 0.2 10/3/uL (4.5-10.5)
[2017-01-31 06:28] LABS: LYMPHOCYTES 94 %; LYMPHOCYTES ABSOLUTE (CALC) 0.19 10/3/uL (0.67-4.30); MONOCYTES 4 %; MONOCYTES ABSOLUTE (CALC) 0.01 10/3/uL (0.21-1.20); SEGMENTED NEUTROPHIL (0) 2 %; TOTAL NUCLEATED CELLS 50
[2017-01-31 06:29] LABS: RBC MORPHOLOGY NORM (NORMAL)
[2017-02-01 04:56] LABS: HEMATOCRIT 21.4 % (36.0-48.0); HEMOGLOBIN 7.5 g/dL (12.0-16.0); MEAN CORPUSCULAR HEMOGLOB 28.8 pg (26.0-34.0); MEAN CORPUSCULAR VOLUME 82.3 fL (80-100); RBC DISTRIBUTION WIDTH 14.5 % (12.0-16.0)
[2017-02-01 04:57] LABS: PLATELET COUNT 3 10/3/uL (150-400); WHITE BLOOD CELLS 0.2 10/3/uL (4.5-10.5)
[2017-02-01 05:00] LABS: MANUAL DIFF YES %
[2017-02-01 05:14] LABS: BUN (BLOOD UREA NITROGEN) 7 MG/DL (6-23); CALCIUM, SERUM 8.1 MG/DL (8.5-10.4); CHLORIDE, SERUM 102 MMOL/L (96-112); CO2 (CARBON DIOXIDE) 24 MMOL/L (24-34); GFR AFRICAN AMERICAN 110 ML/MIN (>=60); GFR NON AFRICAN AMERICAN 95 ML/MIN (>=60); GLUCOSE, SERUM 99 MG/DL (60-99); POTASSIUM, SERUM 3.3 MMOL/L (3.5-5.3); SODIUM, SERUM 135 MMOL/L (135-148)
[2017-02-01 06:06] LABS: ANISOCYTOSIS 1+ (5-10/OIF) (0-5/OIF); LYMPHOCYTES 95 %; LYMPHOCYTES ABSOLUTE (CALC) 0.19 10/3/uL (0.67-4.30); NEUTROPHILS ABSOLUTE (CALC) 0.01 10/3/uL (2.02-8.40); ROULEAUX FORMATION 1+; SEGMENTED NEUTROPHIL (0) 5 %; TOTAL NUCLEATED CELLS 20
[2017-02-02 04:34] LABS: HEMATOCRIT 19.9 % (36.0-48.0); MEAN CORPUS HGB CONC 35.2 g/dL (32.0-36.0); MEAN CORPUSCULAR HEMOGLOB 28.9 pg (26.0-34.0); MEAN CORPUSCULAR VOLUME 82.2 fL (80-100); PLATELET COUNT 10 10/3/uL (150-400); RBC DISTRIBUTION WIDTH 14.3 % (12.0-16.0); RED CELL COUNT 2.42 10/6/uL (4.0-5.6); WHITE BLOOD CELLS 0.2 10/3/uL (4.5-10.5)
[2017-02-02 04:36] LABS: MANUAL DIFF YES %
[2017-02-02 04:49] LABS: BUN (BLOOD UREA NITROGEN) 7 MG/DL (6-23); CALCIUM, SERUM 8.2 MG/DL (8.5-10.4); CHLORIDE, SERUM 102 MMOL/L (96-112); CO2 (CARBON DIOXIDE) 24 MMOL/L (24-34); CREATININE 0.49 MG/DL (0.55-1.02); GFR AFRICAN AMERICAN 110 ML/MIN (>=60); GFR NON AFRICAN AMERICAN 95 ML/MIN (>=60); GLUCOSE, SERUM 102 MG/DL (60-99); POTASSIUM, SERUM 3.2 MMOL/L (3.5-5.3); SODIUM, SERUM 136 MMOL/L (135-148)
[2017-02-02 05:19] LABS: LYMPHOCYTES 100 %; TOTAL NUCLEATED CELLS 100
[2017-02-03 05:21] LABS: HEMATOCRIT 21.5 % (36.0-48.0); HEMOGLOBIN 7.6 g/dL (12.0-16.0); MEAN CORPUS HGB CONC 35.3 g/dL (32.0-36.0); MEAN CORPUSCULAR VOLUME 82.1 fL (80-100); RBC DISTRIBUTION WIDTH 14.1 % (12.0-16.0); RED CELL COUNT 2.62 10/6/uL (4.0-5.6)
[2017-02-03 05:22] LABS: MANUAL DIFF YES %; PLATELET COUNT 2 10/3/uL (150-400); WHITE BLOOD CELLS 0.2 10/3/uL (4.5-10.5)
[2017-02-03 05:39] LABS: BUN (BLOOD UREA NITROGEN) 9 MG/DL (6-23); CALCIUM, SERUM 7.8 MG/DL (8.5-10.4); CHLORIDE, SERUM 102 MMOL/L (96-112); CO2 (CARBON DIOXIDE) 23 MMOL/L (24-34); CREATININE 0.46 MG/DL (0.55-1.02); GFR AFRICAN AMERICAN 113 ML/MIN (>=60); GFR NON AFRICAN AMERICAN 97 ML/MIN (>=60); GLUCOSE, SERUM 106 MG/DL (60-99); POTASSIUM, SERUM 3.4 MMOL/L (3.5-5.3); SODIUM, SERUM 135 MMOL/L (135-148)
[2017-02-03 06:07] LABS: LYMPHOCYTES 100 %; RBC MORPHOLOGY NORM (NORMAL); TOTAL NUCLEATED CELLS 100
[2017-02-04 05:43] LABS: HEMOGLOBIN 7.1 g/dL (12.0-16.0); MEAN CORPUS HGB CONC 35.3 g/dL (32.0-36.0); RBC DISTRIBUTION WIDTH 14.5 % (12.0-16.0); RED CELL COUNT 2.45 10/6/uL (4.0-5.6)
[2017-02-04 05:48] LABS: HEMATOCRIT 20.1 % (36.0-48.0); PLATELET COUNT 2 10/3/uL (150-400); WHITE BLOOD CELLS 0.2 10/3/uL (4.5-10.5)
[2017-02-04 05:49] LABS: MANUAL DIFF YES %
[2017-02-04 05:56] LABS: BUN (BLOOD UREA NITROGEN) 6 MG/DL (6-23); CALCIUM, SERUM 7.7 MG/DL (8.5-10.4); CHLORIDE, SERUM 103 MMOL/L (96-112); CO2 (CARBON DIOXIDE) 25 MMOL/L (24-34); CREATININE 0.48 MG/DL (0.55-1.02); GFR AFRICAN AMERICAN 111 ML/MIN (>=60); GFR NON AFRICAN AMERICAN 96 ML/MIN (>=60); GLUCOSE, SERUM 103 MG/DL (60-99); POTASSIUM, SERUM 3.4 MMOL/L (3.5-5.3); SODIUM, SERUM 138 MMOL/L (135-148)
[2017-02-04 06:09] LABS: LYMPHOCYTES 95 %; LYMPHOCYTES ABSOLUTE (CALC) 0.19 10/3/uL (0.67-4.30); NEUTROPHILS ABSOLUTE (CALC) 0.01 10/3/uL (2.02-8.40); SEGMENTED NEUTROPHIL (0) 5 %; TOTAL NUCLEATED CELLS 20
[2017-02-04 06:10] LABS: POLYCHROMASIA 1+ (2-5/OIF) (0-1/OIF)
[2017-02-04 11:46] LABS: ASCORBIC ACID (UR NOT ORDER) NEG (NEG); BILIRUBIN, URINE NEGATIVE (NEG); KETONE, URINE 80 MG/DL (NEG); LEUKOCYTE ESTERASE(NOT OR NEG (NEG); WBC (NOT ORDERED) (RFLEX) 2 (0-5)
[2017-02-05 06:22] LABS: HEMATOCRIT 17.5 % (36.0-48.0); MEAN CORPUS HGB CONC 34.3 g/dL (32.0-36.0); MEAN CORPUSCULAR HEMOGLOB 28.7 pg (26.0-34.0); MEAN CORPUSCULAR VOLUME 83.7 fL (80-100); PLATELET COUNT 1 10/3/uL (150-400); RBC DISTRIBUTION WIDTH 14.6 % (12.0-16.0); RED CELL COUNT 2.09 10/6/uL (4.0-5.6); WHITE BLOOD CELLS 0.2 10/3/uL (4.5-10.5)
[2017-02-05 06:24] LABS: MANUAL DIFF YES %
[2017-02-05 06:29] LABS: BUN (BLOOD UREA NITROGEN) 6 MG/DL (6-23); CALCIUM, SERUM 7.7 MG/DL (8.5-10.4); CHLORIDE, SERUM 104 MMOL/L (96-112); CO2 (CARBON DIOXIDE) 26 MMOL/L (24-34); CREATININE 0.48 MG/DL (0.55-1.02); GFR AFRICAN AMERICAN 111 ML/MIN (>=60); GFR NON AFRICAN AMERICAN 96 ML/MIN (>=60); GLUCOSE, SERUM 108 MG/DL (60-99); POTASSIUM, SERUM 3.4 MMOL/L (3.5-5.3); SODIUM, SERUM 137 MMOL/L (135-148)
[2017-02-05 07:09] LABS: LYMPHOCYTES 94 %; LYMPHOCYTES ABSOLUTE (CALC) 0.19 10/3/uL (0.67-4.30); MONOCYTES 3 %; MONOCYTES ABSOLUTE (CALC) 0.01 10/3/uL (0.21-1.20); NEUTROPHILS ABSOLUTE (CALC) 0.01 10/3/uL (2.02-8.40); ROULEAUX FORMATION 2+; SEGMENTED NEUTROPHIL (0) 3 %; TOTAL NUCLEATED CELLS 100
[2017-02-06 05:07] LABS: MEAN CORPUS HGB CONC 35.3 g/dL (32.0-36.0); MEAN CORPUSCULAR HEMOGLOB 29.4 pg (26.0-34.0); MEAN CORPUSCULAR VOLUME 83.2 fL (80-100)
[2017-02-06 05:09] LABS: HEMATOCRIT 23.2 % (36.0-48.0); HEMOGLOBIN 8.2 g/dL (12.0-16.0); PLATELET COUNT 2 10/3/uL (150-400); RED CELL COUNT 2.79 10/6/uL (4.0-5.6); WHITE BLOOD CELLS 0.3 10/3/uL (4.5-10.5)
[2017-02-06 05:10] LABS: MANUAL DIFF YES %
[2017-02-06 05:17] LABS: BUN (BLOOD UREA NITROGEN) 7 MG/DL (6-23); CALCIUM, SERUM 7.8 MG/DL (8.5-10.4); CHLORIDE, SERUM 103 MMOL/L (96-112); CO2 (CARBON DIOXIDE) 28 MMOL/L (24-34); CREATININE 0.51 MG/DL (0.55-1.02); GFR AFRICAN AMERICAN 109 ML/MIN (>=60); GFR NON AFRICAN AMERICAN 94 ML/MIN (>=60); GLUCOSE, SERUM 112 MG/DL (60-99); POTASSIUM, SERUM 3.1 MMOL/L (3.5-5.3); SODIUM, SERUM 139 MMOL/L (135-148)
[2017-02-06 05:41] LABS: LYMPHOCYTES 80 %; LYMPHOCYTES ABSOLUTE (CALC) 0.24 10/3/uL (0.67-4.30); MONOCYTES 8 %; MONOCYTES ABSOLUTE (CALC) 0.02 10/3/uL (0.21-1.20); NEUTROPHILS ABSOLUTE (CALC) 0.04 10/3/uL (2.02-8.40); SEGMENTED NEUTROPHIL (0) 12 %; TOTAL NUCLEATED CELLS 25
[2017-02-06 05:43] LABS: HYPOCHROMIA 1+ (3-10/OIF) (0-2/OIF); OVALOCYTES 1+ (3-10/OIF) (0-2/OIF); TEARDROP SHAPED RBCS OCC (0-2/OIF)
[2017-02-07 04:34] LABS: BASOPHILS 0 %; EOSINOPHILS 0 %; HEMATOCRIT 23.2 % (36.0-48.0); HEMOGLOBIN 7.9 g/dL (12.0-16.0); LYMPHOCYTES ABSOLUTE 0.37 10/3/uL (0.67-4.30); MEAN CORPUS HGB CONC 34.1 g/dL (32.0-36.0); MEAN CORPUSCULAR HEMOGLOB 28.6 pg (26.0-34.0); MEAN CORPUSCULAR VOLUME 84.1 fL (80-100); MEAN PLATELET VOLUME 10.8 fL (9.2-13.0); MONOCYTES 2.3 %; MONOCYTES ABSOLUTE 0.01 10/3/uL (0.21-1.20); NEUTROPHILS 11.7 %; NEUTROPHILS ABSOLUTE 0.05 10/3/uL (2.02-8.40); RBC DISTRIBUTION WIDTH 14.3 % (12.0-16.0); RED CELL COUNT 2.76 10/6/uL (4.0-5.6)
[2017-02-07 04:35] LABS: MANUAL DIFF YES %; PLATELET COUNT 29 10/3/uL (150-400); WHITE BLOOD CELLS 0.4 10/3/uL (4.5-10.5)
[2017-02-07 04:46] LABS: BUN (BLOOD UREA NITROGEN) 8 MG/DL (6-23); CALCIUM, SERUM 7.8 MG/DL (8.5-10.4); CHLORIDE, SERUM 104 MMOL/L (96-112); CO2 (CARBON DIOXIDE) 30 MMOL/L (24-34); CREATININE 0.44 MG/DL (0.55-1.02); GFR AFRICAN AMERICAN 114 ML/MIN (>=60); GFR NON AFRICAN AMERICAN 99 ML/MIN (>=60); GLUCOSE, SERUM 110 MG/DL (60-99); POTASSIUM, SERUM 3.2 MMOL/L (3.5-5.3); SODIUM, SERUM 140 MMOL/L (135-148)
[2017-02-07 05:09] LABS: LYMPHOCYTES 80 %; LYMPHOCYTES ABSOLUTE (CALC) 0.32 10/3/uL (0.67-4.30); MONOCYTES 4 %; MONOCYTES ABSOLUTE (CALC) 0.02 10/3/uL (0.21-1.20); NEUTROPHILS ABSOLUTE (CALC) 0.06 10/3/uL (2.02-8.40); SEGMENTED NEUTROPHIL (0) 16 %; TOTAL NUCLEATED CELLS 25
[2017-02-07 05:10] LABS: POLYCHROMASIA 1+ (2-5/OIF) (0-1/OIF)
[2017-02-08 04:38] LABS: HEMATOCRIT 22.8 % (36.0-48.0); HEMOGLOBIN 7.9 g/dL (12.0-16.0); MEAN CORPUS HGB CONC 34.6 g/dL (32.0-36.0); MEAN CORPUSCULAR HEMOGLOB 29.6 pg (26.0-34.0); MEAN CORPUSCULAR VOLUME 85.4 fL (80-100); MEAN PLATELET VOLUME 11.1 fL (9.2-13.0); PLATELET COUNT 27 10/3/uL (150-400); RBC DISTRIBUTION WIDTH 14.4 % (12.0-16.0); RED CELL COUNT 2.67 10/6/uL (4.0-5.6); WHITE BLOOD CELLS 0.5 10/3/uL (4.5-10.5)
[2017-02-08 04:39] LABS: MANUAL DIFF YES %
[2017-02-08 04:51] LABS: BUN (BLOOD UREA NITROGEN) 7 MG/DL (6-23); CALCIUM, SERUM 8.3 MG/DL (8.5-10.4); CHLORIDE, SERUM 103 MMOL/L (96-112); CO2 (CARBON DIOXIDE) 29 MMOL/L (24-34); CREATININE 0.47 MG/DL (0.55-1.02); GFR AFRICAN AMERICAN 112 ML/MIN (>=60); GFR NON AFRICAN AMERICAN 97 ML/MIN (>=60); GLUCOSE, SERUM 108 MG/DL (60-99); POTASSIUM, SERUM 3.4 MMOL/L (3.5-5.3); SODIUM, SERUM 139 MMOL/L (135-148)
[2017-02-08 05:05] LABS: LYMPHOCYTES 68 %; LYMPHOCYTES ABSOLUTE (CALC) 0.34 10/3/uL (0.67-4.30); MONOCYTES 4 %; MONOCYTES ABSOLUTE (CALC) 0.02 10/3/uL (0.21-1.20); NEUTROPHILS ABSOLUTE (CALC) 0.14 10/3/uL (2.02-8.40); SEGMENTED NEUTROPHIL (0) 28 %; TOTAL NUCLEATED CELLS 25
[2017-02-08 05:06] LABS: POLYCHROMASIA 1+ (2-5/OIF) (0-1/OIF)
[2017-02-09 04:25] LABS: HEMATOCRIT 22.8 % (36.0-48.0); HEMOGLOBIN 7.7 g/dL (12.0-16.0); MEAN CORPUS HGB CONC 33.8 g/dL (32.0-36.0); MEAN CORPUSCULAR HEMOGLOB 29.1 pg (26.0-34.0); MEAN PLATELET VOLUME 9.9 fL (9.2-13.0); RBC DISTRIBUTION WIDTH 14.3 % (12.0-16.0); RED CELL COUNT 2.65 10/6/uL (4.0-5.6)
[2017-02-09 04:27] LABS: MANUAL DIFF YES %; PLATELET COUNT 27 10/3/uL (150-400); WHITE BLOOD CELLS 0.4 10/3/uL (4.5-10.5)
[2017-02-09 04:36] LABS: BUN (BLOOD UREA NITROGEN) 6 MG/DL (6-23); CALCIUM, SERUM 8.2 MG/DL (8.5-10.4); CHLORIDE, SERUM 101 MMOL/L (96-112); CO2 (CARBON DIOXIDE) 30 MMOL/L (24-34); CREATININE 0.41 MG/DL (0.55-1.02); GFR AFRICAN AMERICAN 117 ML/MIN (>=60); GFR NON AFRICAN AMERICAN 101 ML/MIN (>=60); GLUCOSE, SERUM 109 MG/DL (60-99); POTASSIUM, SERUM 3.4 MMOL/L (3.5-5.3); SODIUM, SERUM 138 MMOL/L (135-148)
[2017-02-09 05:26] LABS: BAND NEUTROPHILS 18 %; LYMPHOCYTES 55 %; LYMPHOCYTES ABSOLUTE (CALC) 0.22 10/3/uL (0.67-4.30); NEUTROPHILS ABSOLUTE (CALC) 0.18 10/3/uL (2.02-8.40); SEGMENTED NEUTROPHIL (0) 27 %; TOTAL NUCLEATED CELLS 11
[2017-02-10 04:51] LABS: HEMATOCRIT 23.2 % (36.0-48.0); HEMOGLOBIN 7.8 g/dL (12.0-16.0); MEAN CORPUS HGB CONC 33.6 g/dL (32.0-36.0); MEAN CORPUSCULAR HEMOGLOB 29.1 pg (26.0-34.0); MEAN CORPUSCULAR VOLUME 86.6 fL (80-100); MEAN PLATELET VOLUME 10.8 fL (9.2-13.0); RBC DISTRIBUTION WIDTH 14.5 % (12.0-16.0); RED CELL COUNT 2.68 10/6/uL (4.0-5.6)
[2017-02-10 04:52] LABS: MANUAL DIFF YES %; PLATELET COUNT 41 10/3/uL (150-400); WHITE BLOOD CELLS 0.6 10/3/uL (4.5-10.5)
[2017-02-10 05:06] LABS: BUN (BLOOD UREA NITROGEN) 7 MG/DL (6-23); CALCIUM, SERUM 8.3 MG/DL (8.5-10.4); CHLORIDE, SERUM 100 MMOL/L (96-112); CO2 (CARBON DIOXIDE) 31 MMOL/L (24-34); CREATININE 0.45 MG/DL (0.55-1.02); GFR AFRICAN AMERICAN 114 ML/MIN (>=60); GFR NON AFRICAN AMERICAN 98 ML/MIN (>=60); GLUCOSE, SERUM 117 MG/DL (60-99); POTASSIUM, SERUM 3.8 MMOL/L (3.5-5.3); SODIUM, SERUM 136 MMOL/L (135-148)
[2017-02-10 05:19] LABS: BAND NEUTROPHILS 10 %; LYMPHOCYTES 58 %; LYMPHOCYTES ABSOLUTE (CALC) 0.35 10/3/uL (0.67-4.30); NEUTROPHILS ABSOLUTE (CALC) 0.25 10/3/uL (2.02-8.40); SEGMENTED NEUTROPHIL (0) 32 %; TOTAL NUCLEATED CELLS 50
[2017-02-10 05:20] LABS: RBC MORPHOLOGY NORM (NORMAL)
[2017-02-11 06:29] LABS: HEMATOCRIT 26.7 % (36.0-48.0); MANUAL DIFF YES %; MEAN CORPUS HGB CONC 33.7 g/dL (32.0-36.0); MEAN CORPUSCULAR HEMOGLOB 29.2 pg (26.0-34.0); MEAN CORPUSCULAR VOLUME 86.7 fL (80-100); MEAN PLATELET VOLUME 11.6 fL (9.2-13.0); PLATELET COUNT 107 10/3/uL (150-400); RED CELL COUNT 3.08 10/6/uL (4.0-5.6); WHITE BLOOD CELLS 1.1 10/3/uL (4.5-10.5)
[2017-02-11 06:52] LABS: LYMPHOCYTES 44 %; LYMPHOCYTES ABSOLUTE (CALC) 0.41 10/3/uL (0.67-4.30); MONOCYTES 2 %; MONOCYTES ABSOLUTE (CALC) 0.02 10/3/uL (0.21-1.20); NEUTROPHILS ABSOLUTE (CALC) 0.67 10/3/uL (2.02-8.40); PLATELET ESTIMATE SLT DEC (ADEQUATE); RBC MORPHOLOGY NORM (NORMAL); SEGMENTED NEUTROPHIL (0) 54 %; TOTAL NUCLEATED CELLS 100
[2017-02-11 06:56] LABS: ALLENS TEST Pos; BE (BASE EXCESS) 4.8 MEQ/L (0 +/- 2.5); CARBOXYHEMOGLOBIN 0.7 % (0-3); DEVICE NC; HCO3 (ACTUAL BICARBONATE) 27.9 MEQ/L (23-27); HEMOBLOGIN CONTENT 10.1 G/DL (12-16); INSTRUMENT SERIAL # 8083; METHEMOGLOBIN 0.2 % (0-3); O2 CONTENT 13.4 VOL% (18-24); OPERATOR ID 33214; PCO2 (CO2 TENSION) 36 MMHG (35-45); PO2 (O2 TENSION) 71 MMHG (79-93); SAMPLE Arterial; pH 7.51 (7.37-7.43)
[2017-02-11 07:27] LABS: BUN (BLOOD UREA NITROGEN) 6 MG/DL (6-23); CHLORIDE, SERUM 99 MMOL/L (96-112); CO2 (CARBON DIOXIDE) 29 MMOL/L (24-34); CREATININE 0.53 MG/DL (0.55-1.02); GFR AFRICAN AMERICAN 108 ML/MIN (>=60); GFR NON AFRICAN AMERICAN 93 ML/MIN (>=60); GLUCOSE, SERUM 129 MG/DL (60-99); POTASSIUM, SERUM 4.3 MMOL/L (3.5-5.3); SODIUM, SERUM 135 MMOL/L (135-148)
[2017-02-12 03:00] LABS: HEMOGLOBIN 7.7 g/dL (12.0-16.0); MEAN CORPUS HGB CONC 33.3 g/dL (32.0-36.0); MEAN CORPUSCULAR HEMOGLOB 28.6 pg (26.0-34.0); MEAN CORPUSCULAR VOLUME 85.9 fL (80-100); MEAN PLATELET VOLUME 11.1 fL (9.2-13.0); PLATELET COUNT 80 10/3/uL (150-400); RBC DISTRIBUTION WIDTH 14.1 % (12.0-16.0); RED CELL COUNT 2.69 10/6/uL (4.0-5.6)
[2017-02-12 03:05] LABS: HEMATOCRIT 23.1 % (36.0-48.0); MANUAL DIFF YES %; WHITE BLOOD CELLS 0.7 10/3/uL (4.5-10.5)
[2017-02-12 03:15] LABS: BUN (BLOOD UREA NITROGEN) 9 MG/DL (6-23); CALCIUM, SERUM 8.2 MG/DL (8.5-10.4); CHLORIDE, SERUM 95 MMOL/L (96-112); GFR AFRICAN AMERICAN 110 ML/MIN (>=60); GFR NON AFRICAN AMERICAN 95 ML/MIN (>=60); GLUCOSE, SERUM 123 MG/DL (60-99); SODIUM, SERUM 136 MMOL/L (135-148)
[2017-02-12 03:30] LABS: CO2 (CARBON DIOXIDE) 35 MMOL/L (24-34); POTASSIUM, SERUM 3.3 MMOL/L (3.5-5.3)
[2017-02-12 03:50] LABS: PLATELET ESTIMATE DEC (ADEQUATE); TOXIC GRANULATION MOD
[2017-02-12 03:51] LABS: BAND NEUTROPHILS 10 %; LYMPHOCYTES 35 %; LYMPHOCYTES ABSOLUTE (CALC) 0.25 10/3/uL (0.67-4.30); MICROCYTES 1+ (5-10/OIF) (0-5/OIF); NEUTROPHILS ABSOLUTE (CALC) 0.46 10/3/uL (2.02-8.40); SEGMENTED NEUTROPHIL (0) 55 %; TOTAL NUCLEATED CELLS 20
[2017-02-13 05:44] LABS: HEMATOCRIT 21.6 % (36.0-48.0); HEMOGLOBIN 7.2 g/dL (12.0-16.0); MEAN CORPUS HGB CONC 33.3 g/dL (32.0-36.0); MEAN CORPUSCULAR HEMOGLOB 28.9 pg (26.0-34.0); MEAN CORPUSCULAR VOLUME 86.7 fL (80-100); MEAN PLATELET VOLUME 11.9 fL (9.2-13.0); RED CELL COUNT 2.49 10/6/uL (4.0-5.6)
[2017-02-13 05:54] LABS: BUN (BLOOD UREA NITROGEN) 13 MG/DL (6-23); CALCIUM, SERUM 8.7 MG/DL (8.5-10.4); CHLORIDE, SERUM 98 MMOL/L (96-112); CO2 (CARBON DIOXIDE) 32 MMOL/L (24-34); CREATININE 0.47 MG/DL (0.55-1.02); GFR AFRICAN AMERICAN 112 ML/MIN (>=60); GFR NON AFRICAN AMERICAN 97 ML/MIN (>=60); GLUCOSE, SERUM 105 MG/DL (60-99); MANUAL DIFF YES %; PLATELET COUNT 105 10/3/uL (150-400); POTASSIUM, SERUM 3.6 MMOL/L (3.5-5.3); SODIUM, SERUM 136 MMOL/L (135-148)
[2017-02-13 06:39] LABS: LYMPHOCYTES 52 %; LYMPHOCYTES ABSOLUTE (CALC) 0.52 10/3/uL (0.67-4.30); MONOCYTES 4 %; MONOCYTES ABSOLUTE (CALC) 0.04 10/3/uL (0.21-1.20); NEUTROPHILS ABSOLUTE (CALC) 0.44 10/3/uL (2.02-8.40); PLATELET ESTIMATE SLT DEC (ADEQUATE); SEGMENTED NEUTROPHIL (0) 44 %; TOTAL NUCLEATED CELLS 25
[2017-02-13 06:40] LABS: RBC MORPHOLOGY NORM (NORMAL); TOXIC GRANULATION 3+
[2017-02-13 13:12] LABS: BD FL SOURCE (NOT ORD) KNEE FLUID; BODY FLUID RBC (NOT ORD) 1000 /MM3
[2017-02-13 13:20] LABS: BD FL LYMPH (NOT ORD) 2 %; BF BASO (NOT OF) 0 %; BF LARGE MONONUCLEAR 0 %; BODY FLUID EOS (NOT ORD) 0 %; BODY FLUID SEG (NOT ORD) 98 %
[2017-02-13 13:22] LABS: BF TOTAL CELL CT (NOT ORD 17098 /MM3
[2017-02-14 05:25] LABS: MEAN CORPUS HGB CONC 33.3 g/dL (32.0-36.0); MEAN CORPUSCULAR HEMOGLOB 28.9 pg (26.0-34.0); MEAN CORPUSCULAR VOLUME 86.8 fL (80-100); MEAN PLATELET VOLUME 11.8 fL (9.2-13.0); PLATELET COUNT 129 10/3/uL (150-400); RBC DISTRIBUTION WIDTH 14.3 % (12.0-16.0); RED CELL COUNT 2.42 10/6/uL (4.0-5.6)
[2017-02-14 05:30] LABS: WHITE BLOOD CELLS 0.8 10/3/uL (4.5-10.5)
[2017-02-14 05:31] LABS: MANUAL DIFF YES %
[2017-02-14 05:44] LABS: BUN (BLOOD UREA NITROGEN) 14 MG/DL (6-23); CALCIUM, SERUM 8.3 MG/DL (8.5-10.4); CHLORIDE, SERUM 100 MMOL/L (96-112); CO2 (CARBON DIOXIDE) 32 MMOL/L (24-34); GFR AFRICAN AMERICAN 110 ML/MIN (>=60); GFR NON AFRICAN AMERICAN 95 ML/MIN (>=60); GLUCOSE, SERUM 108 MG/DL (60-99); POTASSIUM, SERUM 3.6 MMOL/L (3.5-5.3); SODIUM, SERUM 137 MMOL/L (135-148)
[2017-02-14 06:28] LABS: LYMPHOCYTES 29 %; LYMPHOCYTES ABSOLUTE (CALC) 0.23 10/3/uL (0.67-4.30); NEUTROPHILS ABSOLUTE (CALC) 0.57 10/3/uL (2.02-8.40); SEGMENTED NEUTROPHIL (0) 71 %; TOTAL NUCLEATED CELLS 100
[2017-02-15 04:38] LABS: HEMOGLOBIN 8.2 g/dL (12.0-16.0); MEAN CORPUS HGB CONC 33.6 g/dL (32.0-36.0); MEAN CORPUSCULAR HEMOGLOB 28.9 pg (26.0-34.0); MEAN CORPUSCULAR VOLUME 85.9 fL (80-100); MEAN PLATELET VOLUME 10.9 fL (9.2-13.0); RED CELL COUNT 2.84 10/6/uL (4.0-5.6)
[2017-02-15 04:41] LABS: HEMATOCRIT 24.4 % (36.0-48.0); MANUAL DIFF YES %; PLATELET COUNT 174 10/3/uL (150-400); WHITE BLOOD CELLS 0.9 10/3/uL (4.5-10.5)
[2017-02-15 04:50] LABS: BUN (BLOOD UREA NITROGEN) 14 MG/DL (6-23); CALCIUM, SERUM 8.4 MG/DL (8.5-10.4); CHLORIDE, SERUM 103 MMOL/L (96-112); CO2 (CARBON DIOXIDE) 31 MMOL/L (24-34); CREATININE 0.52 MG/DL (0.55-1.02); GFR AFRICAN AMERICAN 108 ML/MIN (>=60); GFR NON AFRICAN AMERICAN 93 ML/MIN (>=60); GLUCOSE, SERUM 118 MG/DL (60-99); POTASSIUM, SERUM 3.6 MMOL/L (3.5-5.3); SODIUM, SERUM 141 MMOL/L (135-148)
[2017-02-15 05:00] LABS: LYMPHOCYTES 36 %; LYMPHOCYTES ABSOLUTE (CALC) 0.32 10/3/uL (0.67-4.30); MONOCYTES 9 %; MONOCYTES ABSOLUTE (CALC) 0.08 10/3/uL (0.21-1.20); SEGMENTED NEUTROPHIL (0) 55 %; TOTAL NUCLEATED CELLS 67
[2017-02-16 06:14] LABS: BUN (BLOOD UREA NITROGEN) 14 MG/DL (6-23); CHLORIDE, SERUM 103 MMOL/L (96-112); CO2 (CARBON DIOXIDE) 29 MMOL/L (24-34); CREATININE 0.47 MG/DL (0.55-1.02); GFR AFRICAN AMERICAN 112 ML/MIN (>=60); GFR NON AFRICAN AMERICAN 97 ML/MIN (>=60); GLUCOSE, SERUM 120 MG/DL (60-99); POTASSIUM, SERUM 4.2 MMOL/L (3.5-5.3); SODIUM, SERUM 139 MMOL/L (135-148)
[2017-02-16 06:15] LABS: HEMATOCRIT 24.8 % (36.0-48.0); HEMOGLOBIN 8.3 g/dL (12.0-16.0); MANUAL DIFF YES %; MEAN CORPUS HGB CONC 33.5 g/dL (32.0-36.0); MEAN CORPUSCULAR HEMOGLOB 28.8 pg (26.0-34.0); MEAN CORPUSCULAR VOLUME 86.1 fL (80-100); MEAN PLATELET VOLUME 11.3 fL (9.2-13.0); PLATELET COUNT 224 10/3/uL (150-400); RBC DISTRIBUTION WIDTH 14.3 % (12.0-16.0); RED CELL COUNT 2.88 10/6/uL (4.0-5.6); WHITE BLOOD CELLS 1.6 10/3/uL (4.5-10.5)
[2017-02-16 07:04] LABS: BAND NEUTROPHILS 8 %; BASOPHILS 2 %; BASOPHILS ABSOLUTE (CALC) 0.03 10/3/uL (0.0-0.16); LYMPHOCYTES 32 %; LYMPHOCYTES ABSOLUTE (CALC) 0.51 10/3/uL (0.67-4.30); NEUTROPHILS ABSOLUTE (CALC) 1.06 10/3/uL (2.02-8.40); PLATELET ESTIMATE ADQ (ADEQUATE); POLYCHROMASIA 1+ (2-5/OIF) (0-1/OIF); SEGMENTED NEUTROPHIL (0) 58 %; TOTAL NUCLEATED CELLS 50
[2017-02-16 10:10] LABS: RETICULOCYTE COUNT 0.4 % (0.5-2.5)
[2017-02-16 10:11] LABS: RETICULOCYTE COUNT ABSOLUTE 11.5 10/3/uL (20.2-119.8)
[2017-02-17 04:22] LABS: HEMATOCRIT 23.5 % (36.0-48.0); HEMOGLOBIN 7.8 g/dL (12.0-16.0); MEAN CORPUS HGB CONC 33.2 g/dL (32.0-36.0); MEAN CORPUSCULAR HEMOGLOB 28.9 pg (26.0-34.0); MEAN PLATELET VOLUME 11.1 fL (9.2-13.0); PLATELET COUNT 232 10/3/uL (150-400); RBC DISTRIBUTION WIDTH 14.4 % (12.0-16.0)
[2017-02-17 04:23] LABS: MANUAL DIFF YES %; WHITE BLOOD CELLS 1.5 10/3/uL (4.5-10.5)
[2017-02-17 04:37] LABS: CALCIUM, SERUM 8.5 MG/DL (8.5-10.4); CHLORIDE, SERUM 103 MMOL/L (96-112); CO2 (CARBON DIOXIDE) 32 MMOL/L (24-34); CREATININE 0.55 MG/DL (0.55-1.02); GFR AFRICAN AMERICAN 106 ML/MIN (>=60); GFR NON AFRICAN AMERICAN 92 ML/MIN (>=60); GLUCOSE, SERUM 109 MG/DL (60-99); POTASSIUM, SERUM 4.2 MMOL/L (3.5-5.3); SODIUM, SERUM 140 MMOL/L (135-148)
[2017-02-17 04:38] LABS: BUN (BLOOD UREA NITROGEN) 20 MG/DL (6-23)
[2017-02-17 04:55] LABS: BAND NEUTROPHILS 4 %; LYMPHOCYTES 46 %; LYMPHOCYTES ABSOLUTE (CALC) 0.69 10/3/uL (0.67-4.30); MONOCYTES 2 %; MONOCYTES ABSOLUTE (CALC) 0.03 10/3/uL (0.21-1.20); NEUTROPHILS ABSOLUTE (CALC) 0.78 10/3/uL (2.02-8.40); PLATELET ESTIMATE ADQ (ADEQUATE); SEGMENTED NEUTROPHIL (0) 48 %; TOTAL NUCLEATED CELLS 100
[2017-02-17 04:57] LABS: POIKILOCYTOSIS 1+ (5-10/OIF) (0-5/OIF)
== END 2017-02-17 17:04 | DRG 837 ==
LOC: ENRESERVDT → ENRESERVTM → ENRESERV → CANRESERV → 4EA 08:12
PROVIDERS: Internal Medicine; Internal Medicine Hematology & Oncology; Orthopaedic Surgery
PROC: 02HV33Z Insertion of Infusion Device into Superior Vena Cava, Percutaneous Approach (ICD-10-PCS; principal; 2017-01-12)
PROC: 4A02X4A Measurement of Cardiac Electrical Activity, Guidance, External Approach (ICD-10-PCS; 2017-01-12)
PROC: 3E04305 Introduction of Other Antineoplastic into Central Vein, Percutaneous Approach (ICD-10-PCS; 2017-01-12)
PROC: 30233N1 Transfusion of Nonautologous Red Blood Cells into Peripheral Vein, Percutaneous Approach (ICD-10-PCS; 2017-01-12)
PROC: 30233R1 Transfusion of Nonautologous Platelets into Peripheral Vein, Percutaneous Approach (ICD-10-PCS; 2017-01-24)
PROC: 07DR3ZX Extraction of Iliac Bone Marrow, Percutaneous Approach, Diagnostic (ICD-10-PCS; 2017-01-26)
PROC: BD11YZZ Fluoroscopy of Esophagus using Other Contrast (ICD-10-PCS; 2017-01-29)
PROC: 0S9D3ZX Drainage of Left Knee Joint, Percutaneous Approach, Diagnostic (ICD-10-PCS; 2017-02-13)
PROC: 07DR3ZX Extraction of Iliac Bone Marrow, Percutaneous Approach, Diagnostic (ICD-10-PCS; 2017-02-16)
DX: Z51.11 Encounter for antineoplastic chemotherapy (principal); D61.810 Antineoplastic chemotherapy induced pancytopenia; C92.50 Acute myelomonocytic leukemia, not having achieved remission; J96.00 Acute respiratory failure, unspecified whether with hypoxia or hypercapnia; B49 Unspecified mycosis; D70.9 Neutropenia, unspecified; N39.0 Urinary tract infection, site not specified; R19.7 Diarrhea, unspecified; K59.00 Constipation, unspecified; T45.1X5A Adverse effect of antineoplastic and immunosuppressive drugs, initial encounter; K21.9 Gastro-esophageal reflux disease without esophagitis; Z79.82 Long term (current) use of aspirin; Z79.899 Other long term (current) drug therapy; Z88.2 Allergy status to sulfonamides; M10.062 Idiopathic gout, left knee; Z85.820 Personal history of malignant melanoma of skin; R13.10 Dysphagia, unspecified; R50.81 Fever presenting with conditions classified elsewhere; K64.9 Unspecified hemorrhoids
CPT/HCPCS: 36415; 36569; 36600; 71010; 73560-LT; 74220; 80048; 80053; 81001; 82805; 82962; 83615; 83735; 84550; 85025; 85045; 85610; 85730; 86850; 86870; 86900; 86901; 86902; 86920; 86922; 87015; 87040; 87070; 87075; 87102; 87116; 87205; 87493; 87493-59; 88305; 88311; 88313; 89051; 89060; 93306; 93971; 97110-GP; 97116-GP; 97162-GP; A9270-GY; C1751; C9113; G8978-CL-GP; G8979-CJ-GP; J0692; J1200; J1450; J1652; J1940; J1956; J2405; J2550; J9100; J9211; P9037; P9040